=== PATIENT | male | born 1995 | race African-American/Black ===

== ENCOUNTER 2021-02-12 11:02 | Emergency (ER) | payer SELFPAY ==
[~2021-02-12] VITALS: Ht 170.2 cm; Wt 81.8 kg
[2021-02-12 11:55] VITALS: BP 132/74
[2021-02-12 12:43] LABS: BACTERIA,URINE 0 /HPF (0-FEW); BILIRUBIN,URINE NEGATIVE (NEG); CLARITY,URINE CLEAR; COLOR,URINE YELLOW; NITRITE,URINE NEGATIVE (NEG); PH,URINE 7.5 (<5.0-8.0); PROTEIN,URINE NEGATIVE (NEG-TRACE); RBC,URINE RARE /HPF (0-2); UROBILINOGEN,URINE 0.2 mg/dL (0.2 mg/dL); WBC,URINE 0 /HPF (0-4)
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
[2021-02-12] MEDS ORDERED: DOXY100T PO (12:58)
[2021-02-12] MEDS ORDERED: HYDR15CR20 TP (12:58)
[2021-02-12] MEDS ORDERED: cefTRIAXone IM 500 MG VIAL. IM ONE (13:00)
== END 2021-02-12 13:33 | disposition home or self-care (01) ==
LOC: ER 11:02
DX: Z20.2 Contact with and (suspected) exposure to infections with a predominantly sexual mode of transmission (principal); L20.9 Atopic dermatitis, unspecified; R30.0 Dysuria; F17.200 Nicotine dependence, unspecified, uncomplicated
CPT/HCPCS: 81001; 87491; 87591; 96372; 99283; J0696

== ENCOUNTER 2021-05-27 21:50 | Emergency (ER) | payer MEDICAID ==
[~2021-05-27 21:50] MED LIST: DOXY100T PO; HYDR15CR20 TP
== END 2021-05-27 23:30 | disposition left against medical advice (07) ==
LOC: ER 21:50
DX: A64 Unspecified sexually transmitted disease (principal); Z53.21 Procedure and treatment not carried out due to patient leaving prior to being seen by health care provider